=== PATIENT | female | born 1940 | race Caucasian/White ===

== ENCOUNTER 2019-06-20 18:58 | Outpatient (CLI) | payer MEDICARE, OTHER | END 2019-06-20 23:59 | disposition short-term general hospital (02) | LOC: EMS 18:58 | PROVIDERS: ATTEND Surgery | DX: R07.9 Chest pain, unspecified (principal) | CPT/HCPCS: A0425; A0429 ==

== ENCOUNTER 2023-01-15 06:46 | Outpatient (CLI) | payer MEDICARE, OTHER | END 2023-01-15 23:59 | disposition critical access hospital (66) | LOC: EMS 06:46 | DX: S01.81XA Laceration without foreign body of other part of head, initial encounter (principal); R51.9 Headache, unspecified; R55 Syncope and collapse; W18.39XA Other fall on same level, initial encounter; Y92.002 Bathroom of unspecified non-institutional (private) residence as the place of occurrence of the external cause | CPT/HCPCS: A0425; A0429 ==

== ENCOUNTER 2023-01-15 07:13 | Emergency (ER) | payer MEDICARE, OTHER ==
--- NOTE | 2023-01-15 07:12 | ED Physician Documentation ---
PD HPI Fall - Stated complaint Stated Complaint: GLF/LAC, HEAD INJURY - History obtained from History obtained from: Patient, EMS - History of Present Illness Mechanism of injury: Unknown (she was in the bathroom and her daughter heard a thud upstairs. Daughter went right up and found pt on floor, unconscious. She went forher phone and called 911 then return to bathroom and pt was sitting up, conversant, holding her head, and saying "what just happened?".) Fall distance: Standing position Where injury occurred: Home Injury(ies) location: Head (laceration and some pain left occipitoparietal pain.). No: Neck, Chest, Abdomen Associated symptoms: LOC (brief, under 2 minutes.), Amnesia (does not remember the fall or just prior.). No: AMS, Weakness, Paresthesias Worsens with: No: Movement, Palpation Contributing factors: No: Anticoagulated Similar symptoms before: Diagnosis, Has not had sx before Recently seen: Not recently seen Review of Systems Constitutional: denies: Fever, Chills Nose: denies: Rhinorrhea / runny nose, Congestion Throat: denies: Sore throat Respiratory: denies: Cough Skin: reports: Laceration (s) Musculoskeletal: denies: Neck pain, Back pain Neurologic: denies: Focal weakness, Numbness, Altered mental status PD PAST MEDICAL HISTORY - Past Medical History Respiratory: None Neuro: Dementia Endocrine/Autoimmune: None - Allergies Allergies/Adverse Reactions: Allergies Allergy/AdvReac Type Severity Reaction Status Date / Time No Known Drug Allergies Allergy Verified 01/15/23 07:26 - Living Situation Living Situation: reports: With family Living Arrangement: reports: At home, Other (she does her own ADLs, per patient.) - Social History Does the pt smoke?: No Does the pt drink ETOH?: No PD ED PE NORMAL - Vitals Vital signs reviewed: Yes - General General: Alert and oriented X 3, No acute distress (blood in hair left occiput.She is awake and alert, no general complaints. 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 Relevant findings are: Rate: Rate (enter#) (53) Rhythm: Sinus bradycardia Intervals: RBBB Ischemia: Non specific changes. No: ST elevation c/w ischemia Compare to prior EKG: Old EKG unavailable Computer interpretation: Agree with computer - Labs Labs: Laboratory Tests 01/15/23 01/15/23 01/15/23 09:07 09:07 09:07 WBC 6.2 RBC 4.66 Hgb 14.7 Hct 45.5 MCV 97.6 MCH 31.5 H MCHC 32.3 RDW 12.9 Plt Count 220 MPV 11.1 H Neut # (Auto) 4.5 Lymph # (Auto) 1.0 L [place] # (Auto) 0.6 Eos # (Auto) 0.1 Baso # (Auto) 0.1 Absolute Nucleated RBC 0.00 Nucleated RBC % 0.0 Sodium 140 Potassium 4.4 Chloride 102 Carbon Dioxide 29 Anion Gap 9.0 BUN 16 Creatinine 0.8 Estimated GFR (MDRD) 68 L Glucose 106 H Calcium 9.2 Magnesium 2.3 Total Bilirubin 0.4 AST 34 ALT 29 Alkaline Phosphatase 87 Troponin I High Sens 3.5 Total Protein 7.3 Albumin 4.0 Globulin 3.3 Albumin/Globulin Ratio 1.2 Lipase 42 - Rads (name of study) head CT Relevant Findings:: Prelim report reviewed (no ICH, fractures, nor other acute process), EMP independent interpretation of test, See rad report cervical Spine CT Relevant Findings:: Prelim report reviewed (no fractures/acute changes. ), EMP independent interpretation of test, See rad report Procedures - Laceration (location) left scalp Length in cm: 5.2 Wound type: Curved, Into subcut fat, Clean Anesthesia: Lidocaine 1%, Lidocaine 1% with epi Wound preparation: Irrigated copiously NS, Wound explored, To the base Skin layer closure: Nylon, Running, Size #-0 - enter number (4), Sutures - enter # (9) Other: Patient tolerated well, No complications, Tetanus UTD PD Medical Decision Making - ED course Complexity details: reviewed results (head CT without acute findings( scalp lac noted). ), considered differential (unclear if syncnope and struck head, versus mechanical slip/fall and concussive symptoms. She is alert and conversant here. Has scalp lac but other feeling okay. Was felling okay prior to fall. ), d/w patient ED course: fall and scalp lac. Had felt okay prior and subsequently. Had LOC briefly. Consider slip and fall with concussive symptoms versus syncope and fall. Pt does not remember the fall, but not recalling any preceding symptoms. Labs including CBC, chemistry panel, and troponin are normal. In the ER, monitor with rhythm and BP are remaining normal. Departure - Departure Disposition: 01 Home, Self Care Clinical Impression: Fall, Scalp laceration, Syncope Condition: Stable Record reviewed to determine appropriate education?: Yes Instructions: ED Concussion, ED Fainting Unkn Cause Comments: It is okay to wash and shower. Clean off the wound twice a day with soap and water, or peroxide and water. Apply some antibiotic ointment to it to keep it moist. Also to watch for signs of infection such as purulence, redness or increasing pain. Return to your primary care or the ER at the specified time for suture removal. Suture removal 8 to 10 days. It is unclear whether you had a fainting episode leading to your falling over whether it could have been accidental fall with a concussion (not remembering the event and being passed out for a minute or 2). You do appear well here. Your blood pressure and heart rate are good. Your basic blood tests chemistry panel and blood count are normal. No indicator for heart attack based on a blood test. Your EKG does have an electrical abnormality called a right bundle branch block. This may be an old finding or chronic for you as we have no comparison. It does not usually cause any problems per se. Consideration if you have any repeated episodes of lightheadedness or fainting would be irregular heart rhythms periodically. Your primary care could have you schedule for a heart monitor that you wear for several days to week if recurrent symptoms. Stay well-hydrated. Follow-up with your primary care. Discharge Date/Time: 01/15/23 10:27
[2023-01-15] MEDS: ACETAMINOPHEN 325 MG TABLET PO STA (08:04)
--- NOTE | 2023-01-15 08:06 | CT Report ---
PROCEDURE: HEAD WO INDICATIONS: fall, struck head; laceration/EAGLE TECHNIQUE: Noncontrast 4.5 mm thick angled axial sections acquired from the foramen magnum to the vertex. For r adiation dose reduction, the following was used: automated exposure control, adjustment of mA and/or kV according to patient size. COMPARISON: None. FINDINGS: Image quality: Excellent. CSF spaces: Basal cisterns are patent. No extra-axial fluid collections. Ventricles are normal in size and shape. Brain: No midline shift. No intracranial masses or hemorrhage. Moderate cerebral volume loss and m ild periventricular white matter chronic small vessel ischemic changes. [place]-white matter interface i s normal. Skull and face: Left parietal laceration. Calvarium and visualized facial bones are intact, without s uspicious lesions. Sinuses: Visualized sinuses and mastoids are clear. IMPRESSION: No acute intracranial abnormality. Reviewed by: Keo yRan MD on 01/15/2023 8:05 AM PDT Approved by: Keo Ryan MD on 01/15/2023 8:05 AM PDT Station ID: [id number]
--- NOTE | 2023-01-15 08:13 | CT Report ---
PROCEDURE: CERVICAL SPINE WO INDICATIONS: fall, struck head; head/neck pain TECHNIQUE: Noncontrast 3 mm thick sections acquired from the skull base to the T4 level. Sagittal and coronal r eformats were then constructed. For radiation dose reduction, the following was used: automated exp osure control, adjustment of mA and/or kV according to patient size. COMPARISON: None. FINDINGS: Image quality: Excellent. Bones: No fractures or dislocations. Degenerative disc and facet disease in cervical spine. There i s moderate atlantoaxial joint degeneration. Visualized superior ribs are intact. Soft tissues: Prevertebral soft tissues are normal in thickness. No paravertebral hematomas. No ap ical pneumothoraces. IMPRESSION: 1. No cervical spine fractures. 2. Degenerative changes as described. Reviewed by: Keo Ryan MD on 01/15/2023 8:12 AM PDT Approved by: Keo Ryan MD on 01/15/2023 8:12 AM PDT Station ID: [id number]
[2023-01-15 09:14] LABS: BASOPHILS # (AUTO) 0.1 10^3/uL (0.0-0.1); BASOPHILS % (AUTO) 0.8 %; EOSINOPHILS # (AUTO) 0.1 10^3/uL (0.0-0.7); EOSINOPHILS % (AUTO) 0.8 %; HCT - HEMATOCRIT 45.5 % (37.0-47.0); HGB - HEMOGLOBIN 14.7 g/dL (12.0-16.0); LYMPHOCYTES % (AUTO) 15.9 %; MEAN CORPUSCULAR HEMOGLOBIN 31.5 pg (27.0-31.0); MEAN CORPUSCULAR HGB CONC 32.3 g/dL (32.0-36.0); MEAN CORPUSCULAR VOLUME 97.6 fL (81.0-99.0); MEAN PLATELET VOLUME 11.1 fL (7.9-10.8); MONOCYTES # (AUTO) 0.6 10^3/uL (0.0-1.0); MONOCYTES % (AUTO) 8.8 %; NEUTROPHILS # (AUTO) 4.5 10^3/uL (1.5-6.6); NEUTROPHILS % (AUTO) 72.9 %; PLT - PLATELET COUNT 220 10^3/uL (130-450); RED BLOOD COUNT 4.66 10^6/uL (4.20-5.40); RED CELL DISTRIBUTION WIDTH 12.9 % (12.0-15.0); WHITE BLOOD COUNT 6.2 x10^3/uL (4.8-10.8)
[2023-01-15 09:27] LABS: ALBUMIN/GLOBULIN RATIO 1.2 (1.0-2.2); BILIRUBIN,TOTAL 0.4 mg/dL (0.2-1.0); CALCIUM 9.2 mg/dL (8.5-10.3); CREATININE 0.8 mg/dL (0.4-1.0); MAGNESIUM 2.3 mg/dL (1.7-2.8); POTASSIUM 4.4 mmol/L (3.5-5.0); TOTAL PROTEIN 7.3 g/dL (6.7-8.2)
[2023-01-15 10:32] VITALS: BP 175/74
== END 2023-01-15 10:27 | disposition home or self-care (01) ==
LOC: EDUNIT# → ED 07:13
DX: S01.01XA Laceration without foreign body of scalp, initial encounter (principal); R55 Syncope and collapse; W19.XXXA Unspecified fall, initial encounter; F03.90 Unspecified dementia, unspecified severity, without behavioral disturbance, psychotic disturbance, mood disturbance, and anxiety
CPT/HCPCS: 12002; 36415; 70450; 72125; 80053; 83690; 83735; 84484; 85025; 93005; 99284; A9270

== ENCOUNTER 2023-07-26 21:00 | Emergency (ER) | payer MEDICARE, OTHER ==
--- NOTE | 2023-07-26 21:21 | ED Physician Documentation ---
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 patient was "very gassy" per daughter on the way to the ED. On arrival, symptoms had resolved. daughter states patient was acting normally yesterday . history limited by patient dementia Review of Systems Unable to obtain: Dementia PD PAST MEDICAL HISTORY - Past Medical History Respiratory: None Neuro: Dementia Endocrine/Autoimmune: None - Present Medications Home Medications: Ambulatory Orders Medication Instructions Recorded Confirmed Donepezil [Aricept] 10 mg PO DAILY 07/26/23 Levothyroxine [Synthroid] 50 mcg PO DAILY 07/26/23 - Allergies Allergies/Adverse Reactions: Allergies Allergy/AdvReac Type Severity Reaction Status Date / Time No Known Drug Allergies Allergy Verified 07/26/23 21:30 - Social History Does the pt smoke?: No Does the pt drink ETOH?: No PD ED PE NORMAL - Vitals Vital signs reviewed: Yes - General General: No acute distress, Well developed/nourished - HEENT HEENT: Atraumatic, PERRL, EOMI, Moist mucous membranes, Pharynx benign - Neck Neck: Supple, no meningeal sign - Cardiac Cardiac: RRR - Respiratory Respiratory: No respiratory distress, Clear bilaterally - Abdomen Abdomen: Non tender, Non distended - Derm Derm: Normal color, Warm and dry - Extremities Extremities: No deformity - Neuro Neuro: No motor deficit, No sensory deficit Results - Vitals Vitals: Vital Signs - 24 hr 07/26/23 07/26/23 21:07 21:28 Temperature 36.8 C Heart Rate 63 78 Respiratory 17 13 Rate Blood Pressure 171/66 H O2 Saturation 97 98 Oxygen O2 Source Room air - EKG (time done) 0159 EKG releavant findings:: EKG personally interpreted by author of this note. Relevant findings are: Rate: Rate (enter#) (59) Rhythm: NSR [place]: Normal Intervals: Normal [place], RBBB QRS: Normal - Labs Labs: Laboratory Tests 07/26/23 07/26/23 07/26/23 21:31 21:31 21:31 WBC 8.1 RBC 4.66 Hgb 14.7 Hct 44.7 MCV 95.9 MCH 31.5 H MCHC 32.9 RDW 12.6 Plt Count 233 MPV 10.5 Neut # (Auto) 5.3 Lymph # (Auto) 1.8 [place] # (Auto) 0.8 Eos # (Auto) 0.1 Baso # (Auto) 0.1 Absolute Nucleated RBC 0.00 Nucleated RBC % 0.0 VBG pH VBG pCO2 VBG pO2 VBG HCO3 VBG Total CO2 VBG O2 Saturation VBG Base Excess Sodium 139 Potassium 3.8 Chloride 102 Carbon Dioxide 29 Anion Gap 8.0 BUN 17 Creatinine 0.9 Estimated GFR (MDRD) 60 L Glucose 91 Calcium 9.6 Total Bilirubin 0.4 AST 15 ALT 13 Alkaline Phosphatase 94 Troponin I High Sens 3.9 B-Natriuretic Peptide 54 Total Protein 6.9 Albumin 4.3 Globulin 2.6 Albumin/Globulin Ratio 1.7 Lipase 40 07/26/23 21:31 WBC RBC Hgb Hct MCV MCH MCHC RDW Plt Count MPV Neut # (Auto) Lymph # (Auto) [place] # (Auto) Eos # (Auto) Baso # (Auto) Absolute Nucleated RBC Nucleated RBC % VBG pH 7.376 VBG pCO2 50.5 VBG pO2 36.7 VBG HCO3 28.9 H VBG Total CO2 30.5 H VBG O2 Saturation 71.9 VBG Base Excess 2.7 H Sodium Potassium Chloride Carbon Dioxide Anion Gap BUN Creatinine Estimated GFR (MDRD) Glucose Calcium Total Bilirubin AST ALT Alkaline Phosphatase Troponin I High Sens B-Natriuretic Peptide Total Protein Albumin Globulin Albumin/Globulin Ratio Lipase PD Medical Decision Making - ED course ED course: 83yF with pmh dementia, p/w short lived cp/soa on waking now resolved. cbc, abdominal panel, tropX 2 benign. ekg appears unchanged from previous. cardiac monitoring unremarkable. vitals and physical exam normal. chest xray looked normal per my wet read. radiologist interpreted possible basilar atelectasis vs scarring. patient feeling well on reexam. plan to dc home to f/u with pcp. return precautions given. Departure - Departure Clinical Impression: Chest pain, Dyspnea Condition: Stable Instructions: ED Chest Pain NonCardiac Comments: You were seen in the emergency department for chest pain and shortness of breath. Your workup uncovered no emergent issues. Please follow-up with your primary care provider and return to the emergency department if you have any new or worsening symptoms or other concerns.
[2023-07-26 21:36] LABS: BASOPHILS # (AUTO) 0.1 10^3/uL (0.0-0.1); BASOPHILS % (AUTO) 0.6 %; EOSINOPHILS # (AUTO) 0.1 10^3/uL (0.0-0.7); EOSINOPHILS % (AUTO) 1.7 %; HCT - HEMATOCRIT 44.7 % (37.0-47.0); HGB - HEMOGLOBIN 14.7 g/dL (12.0-16.0); LYMPHOCYTES # (AUTO) 1.8 10^3/uL (1.5-3.5); LYMPHOCYTES % (AUTO) 22.1 %; MEAN CORPUSCULAR HEMOGLOBIN 31.5 pg (27.0-31.0); MEAN CORPUSCULAR HGB CONC 32.9 g/dL (32.0-36.0); MEAN CORPUSCULAR VOLUME 95.9 fL (81.0-99.0); MEAN PLATELET VOLUME 10.5 fL (7.9-10.8); MONOCYTES # (AUTO) 0.8 10^3/uL (0.0-1.0); MONOCYTES % (AUTO) 9.6 %; NEUTROPHILS # (AUTO) 5.3 10^3/uL (1.5-6.6); NEUTROPHILS % (AUTO) 65.5 %; PLT - PLATELET COUNT 233 10^3/uL (130-450); RED BLOOD COUNT 4.66 10^6/uL (4.20-5.40); RED CELL DISTRIBUTION WIDTH 12.6 % (12.0-15.0); WHITE BLOOD COUNT 8.1 x10^3/uL (4.8-10.8)
[2023-07-26 21:39] LABS: VBG PCO2 50.5 mmHg (41-51); VBG PH 7.376 (7.31-7.41); VBG PO2 36.7 mmHg (25-47)
[2023-07-26 21:40] LABS: VBG BASE EXCESS 2.7 mmol/L (-2 - +2); VBG HCO3 28.9 mmol/L (23-28); VBG OXYGEN SATURATION 71.9 % (60-80); VBG TOTAL CO2 30.5 mmol/L (24-29)
[2023-07-26 21:57] LABS: ALBUMIN 4.3 g/dL (3.2-5.5); ALBUMIN/GLOBULIN RATIO 1.7 (1.0-2.2); BILIRUBIN,TOTAL 0.4 mg/dL (0.2-1.0); CALCIUM 9.6 mg/dL (8.5-10.3); CREATININE 0.9 mg/dL (0.6-1.3); POTASSIUM 3.8 mmol/L (3.5-4.5); TOTAL PROTEIN 6.9 g/dL (6.4-8.9); TROPONIN I HIGH SENSITIVITY 3.9 ng/L (2.3-14.8)
--- NOTE | 2023-07-26 22:07 | XRAY Report ---
PROCEDURE: Chest 1V INDICATIONS: Chest Pain TECHNIQUE: One view of the chest was acquired. COMPARISON: None. FINDINGS: Surgical changes and devices: None. Lungs and pleura: No consolidation or pleural effusion. Possible linear opacity at the left base lik brintey scarring or atelectasis. Mediastinum: Normal heart size Bones and chest wall: Degenerative changes. IMPRESSION: Portable single view radiograph without acute abnormality. Possible scarring or atelectasis at the left lung base. Reviewed by: Ramin Martins MD on 07/26/2023 10:05 PM PST Approved by: Ramin Martins MD on 07/26/2023 10:05 PM [facility] Station ID: [id number]
[2023-07-26 23:08] VITALS: O2SAT 97
[2023-07-27 00:42] VITALS: BP 154/78
== END 2023-07-27 00:15 | disposition home or self-care (01) ==
LOC: ED 21:00
DX: R07.9 Chest pain, unspecified (principal); R06.00 Dyspnea, unspecified
CPT/HCPCS: 36415; 80053; 82803; 83690; 83880; 84484; 85025; 93005; 99283; 99284